=== PATIENT | female | born 1960 | race African-American/Black ===

== ENCOUNTER 2017-09-30 00:40 | Inpatient (IN) | payer MEDICAID ==
[~2017-09-30] VITALS: Ht 167.6 cm; Wt 79.4 kg
--- NOTE | ~2017-09-30 | EC ---
PATIENT:RADHA LEIVA DATE OF SERVICE: 09/30/17 SEX: F MEDICAL RECORD: [id number] DATE OF : 62 LOCATION:D.MS Suh224 AGE OF PATIENT: 57 ADMISSION DATE: 09/30/17 REFERRING PHYSICIAN: INTERPRETING PHYSICIAN: KEIRA CURRY MD ECHOCARDIOGRAM REPORT ECHO CHARGES 5 ECHO LIMITED Date: 10/02 CLINICAL DIAGNOSIS: BUBBLE STUDY LIMITED TO ASSESS FOR ASD/SHUNT ECHOCARDIOGRAPHIC MEASUREMENTS (adult normal given) AC root (d.<3.7cm) 3.6 cm LV Septum d (<1.2 cm> 1.4 cm Valve Excursion 1.9 cm LV Septum (systole) 1.5 cm Left Atria (s.<4.0cm> 3.9 cm LVPW d(<1.2cm) 1.5 cm RV (d.<2.3cm) 4.5 cm LVPW (sytole) 2. cm LV diastole(<5.6CM) 4.9 cm MV E-F(>70mm/sec) cm LV systole 3.9 cm LVOT Diameter 1.7 cm MV exc.(>10mm) 1.7 cm Est.ejection fraction (50-75%) % DOPPLER: LVIT cm/sec A 57.0 cm/sec E 132 cm/sec LA cm/sec RVSP 67 mmHg LVOT 109 cm/sec AOP1/2T m/s Asc. Ao 141 cm/sec RVOT 73 cm/sec RA cm/sec PA 87 cm/sec AV Gradient Peak 7.90 mmHg AV Mean 4.57 mmHg AV Area 1.8 cm MV Gradient Peak 10.43mmHg MV Mean 3.26 mmHg MV Area cm COMMENTS: NO ASD/SHUNT NOTED Realtime Captioner: Angle GIPSON X Ray Technologist: 2 Dr. Lewis TAPE# PACS Pericardial Effusion N DATE OF SERVICE: PROCEDURE: Echo with bubble study. FINDINGS: 1. Left ventricular chamber size is within normal limits. Left ventricular systolic function is normal. Overall ejection fraction estimated at 65%. 2. Left atrium, right atrium, and right ventricular chamber sizes are within normal limits. 3. Valvular structures have normal structure and motion. ECHOCARDIOGRAM REPORT [id number] RADHA LEIVA 4. Doppler interrogation reveals no significant valvular insufficiency or stenosis. 5. No evidence of pericardial effusion or left ventricular thrombus. 6. Bubble study was performed. There is no evidence of ASD or VSD. TRANSINT:[id number] Voice Confirmation ID: [id number] DOCUMENT ID: [id number] KEIRA CURRY MD at 1057 CC: [id number] DICTATION DATE: 10/02/17 1259 SHIPBUILDING DRAFTSPERSON: 10/02/17 1307 ADM IN [place] [address] [place] [address]
--- NOTE | ~2017-09-30 | CN ---
PATIENT NAME:RADHA LEIVA MEDICAL RECORD: [id number] : 62 LOCATION:D.MS Suh2240 ADMIT DATE: 09/30/17 ACCOUNT: [id number] CONSULTING PHYSICIAN: NORMA STEEN MD REFERRING PHYSICIAN: LOTUS LOPEZ MD DATE OF CONSULTATION: 10/01/2017 CHIEF COMPLAINT: Pneumonia. HISTORY OF PRESENT ILLNESS: The patient was admitted with pneumonia. She has been having some abdominal pain as well. She underwent an abdominal ultrasound which revealed small amount of ascites adjacent to the liver. Mild gallbladder wall thickening with a small amount of pericholecystic fluid, which is likely due to underlying liver parenchymal disease. It could also indicate a chronic cholecystitis. There was fatty infiltration of the liver. The patient underwent an abdominal and pelvic CT scan, which revealed no acute inflammatory process seen in the abdomen. The patient states that her abdominal symptoms, which consist of pain and tenderness in the epigastrium as well as the right upper quadrant began when she was started on steroids due to respiratory problems. I think that due to the association with steroid use that it is more likely that her pain is due to gastritis, duodenitis, peptic ulcer disease, or gastroesophageal reflux disease. Symptoms are moderate in severity. It is nonradiating. It is of recent onset. This is a consultation note addendum. For the typed portion of the consult note, please see the chart. This would include the past medical and surgical history, current medications, allergies, social history as well as family history. REVIEW OF SYSTEMS: Positive for pain. Positive for dyspnea on exertion. Positive for orthopnea. Positive for cough. The review of systems is negative other than as is described above. PHYSICAL EXAMINATION: GENERAL: The patient does appear acutely ill. He does not appear chronically ill. VITAL SIGNS: Reviewed. The entire physical examination was performed in the presence of a female nurse. EARS: External ears appear normal. EYES: Extraocular movements are intact. NECK: Trachea is midline. CHEST: No intercostal retractions. PULMONARY: Mildly labored. No stridor. ABDOMEN: Tenderness as described above with guarding. No peritonitis to percussion. No Rovsing sign. There is a Harrell sign. EXTREMITIES: No peripheral cyanosis. INTEGUMENT: No rash, no ulcerations. PSYCHIATRIC: Normal affect. NEUROLOGIC: Nonfocal, no lethargy. The patient answers questions appropriately, moves all extremities well. BACK: No thoracic kyphosis. CONSULT REPORT [id number] RADHA LEIVA IMPRESSION: Epigastric and right upper quadrant abdominal pain, likely not due to biliary disease. PLAN: She is too high risk for a gallbladder operation at this point due to her lung disease. For this reason, I will see her in the office in followup and we will see if her symptoms have resolved by then. TRANSINT:[id number] Voice Confirmation ID: [id number] DOCUMENT ID: [id number] NORMA STEEN MD at 1517 CC: [id number] DICTATION DATE: 10/03/17 1102 PAYROLL BOOKKEEPER: 10/03/17 1139 ADM IN [facility] [address] [place] [address]
--- NOTE | ~2017-09-30 | EC ---
PATIENT:RADHA LEIVA DATE OF SERVICE: 09/30/17 SEX: F MEDICAL RECORD: [id number] DATE OF : 62 LOCATION:D.MS Suh224 AGE OF PATIENT: 57 ADMISSION DATE: 09/30/17 REFERRING PHYSICIAN: INTERPRETING PHYSICIAN: KEIRA CARMONA MD ECHOCARDIOGRAM REPORT ECHO CHARGES 4 ECHO COMPLETE Date: 09/30 CLINICAL DIAGNOSIS: EFFUSION ECHOCARDIOGRAPHIC MEASUREMENTS (adult normal given) AC root (d.<3.7cm) 3.6 cm LV Septum d (<1.2 cm> 1.4 cm Valve Excursion 1.9 cm LV Septum (systole) 1.5 cm Left Atria (s.<4.0cm> 3.9 cm LVPW d(<1.2cm) 1.5 cm RV (d.<2.3cm) 4.5 cm LVPW (sytole) 2. cm LV diastole(<5.6CM) 4.9 cm MV E-F(>70mm/sec) cm LV systole 3.9 cm LVOT Diameter 1.7 cm MV exc.(>10mm) 1.7 cm Est.ejection fraction (50-75%) % DOPPLER: LVIT cm/sec A 57.0 cm/sec E 132 cm/sec LA cm/sec RVSP 67 mmHg LVOT 109 cm/sec AOP1/2T m/s Asc. Ao 141 cm/sec RVOT 73 cm/sec RA cm/sec PA 87 cm/sec AV Gradient Peak 7.90 mmHg AV Mean 4.57 mmHg AV Area 1.8 cm MV Gradient Peak 10.43mmHg MV Mean 3.26 mmHg MV Area cm COMMENTS: Wall Taper Helper: Angle GIPSON Ac/Dc Rewinder: 1 Dr. Carmona TAPE# PACS Pericardial Effusion Y DATE OF SERVICE: 09/30/2017 FINDINGS: 1. Left ventricular chamber size is mildly dilated. Left ventricular systolic function is moderately reduced. Overall ejection fraction estimated at 30%. 2. Left atrium is within normal limits at 3.9 cm. Right atrium and right ventricular chamber sizes are moderately dilated. 3. Valvular structures have normal structure and motion. 4. Doppler interrogation reveals severe mitral regurgitation, severe tricuspid regurgitation, no other valvular insufficiency or stenosis; however, pulmonary ECHOCARDIOGRAM REPORT [id number] RADHA LEIVA systolic pressure is significantly elevated estimated at 67 mmHg. 5. No evidence of pericardial effusion or left ventricular thrombus. TRANSINT:[id number] Voice Confirmation ID: [id number] DOCUMENT ID: [id number] KEIRA CARMONA MD at 1056 CC: [id number] DICTATION DATE: 10/01/17 0940 GENERAL SCIENCE TEACHER: 10/01/17 1118 ADM IN [facility] [address] [place] [address]
[2017-09-30 01:29] LABS: BASOPHILS 0.4 % (0-2); EOSINOPHILS 1.3 % (0-7); HEMATOCRIT 32.8 % (36.0-48.0); HEMOGLOBIN 11.2 g/dL (12-16); IMMATURE GRANULOCYTES 0.4 % (0-5); LYMPHOCYTES 48.1 % (15-50); MCH 27.7 pg (26.0-34.0); MCHC 34.1 g/dL (31.0-37.0); MEAN PLATELET VOLUME 10.7 fL (7.4-10.4); MONOCYTES 5.2 % (2-11); NEUTROPHILS 44.6 % (40-80); PLATELET COUNT 320 10x3/uL (130-400); RBC 4.05 10x6/uL (4.00-5.40); RDW 14.2 % (11.5-14.5); WBC 11.2 10x3/uL (4.8-10.8)
[2017-09-30 01:53] LABS: ALBUMIN 3.2 g/dL (3.4-5.0); BILIRUBIN - TOTAL 0.5 mg/dL (0.2-1.3); CALCIUM 8.3 mg/dL (8.5-10.1); CREATININE - SERUM 1.2 mg/dL (0.6-1.3); PROTEIN - SERUM 6.5 g/dL (6.4-8.2)
[2017-09-30 02:04] LABS: APPEARANCE CLEAR (CLEAR); BILIRUBIN NEGATIVE (NEGATIVE); COLOR YELLOW (YELLOW); GLUCOSE NEGATIVE (NEGATIVE); KETONE NEGATIVE (NEGATIVE); NITRITE NEGATIVE (NEGATIVE); PROTEIN 3+ mg/dL (NEGATIVE); SPECIFIC GRAVITY 1.015 (1.005-1.020); UROBILINOGEN NORMAL (NORMAL)
[2017-09-30 02:05] LABS: BACTERIA FEW /hpf (NONE SEEN); EPITHELIAL CELLS 0-5 /hpf (0-5); RED CELLS - URINE 0-5 /hpf (0-5); WHITE CELLS - URINE 0-5 /hpf (0-5)
[2017-09-30 02:51] LABS: CKMB 1.4 U/L (0.0-3.6); CREATINE KINASE 78 UL (21-215); TROPONIN-I 0.034 ng/mL (0.000-0.060)
[2017-09-30 08:44] VITALS: BP 155/93; BMI 28.3
[2017-09-30 12:32] VITALS: BP 123/76
[2017-09-30 15:59] LABS: % SATURATION 17 % (15-55); IRON 55 ug/dl (35-150); TOTAL IRON BIND CAPACITY 317 ug/dl (260-445); UNSAT IRON BIND CAPACITY 262 ug/dl (150-375)
[2017-09-30 16:02] LABS: CKMB 1.3 U/L (0.0-3.6); CREATINE KINASE 54 UL (21-215); TROPONIN-I 0.024 ng/mL (0.000-0.060)
[2017-09-30 16:16] LABS: FERRITIN 366 ng/mL (3-244); PRO BNP 5031 pg/mL (0-125)
[2017-09-30 16:31] VITALS: BP 158/98
[2017-09-30 20:23] VITALS: BP 172/81
[2017-09-30 21:53] LABS: CREATINE KINASE 54 UL (21-215); TROPONIN-I < 0.017 ng/mL (0.000-0.060)
[2017-09-30 23:43] VITALS: BP 170/94
[2017-10-01 06:09] LABS: BASOPHILS 0.3 % (0-2); EOSINOPHILS 1.8 % (0-7); HEMATOCRIT 32.3 % (36.0-48.0); HEMOGLOBIN 10.4 g/dL (12-16); IMMATURE GRANULOCYTES 0.1 % (0-5); LYMPHOCYTES 42.9 % (15-50); MCH 26.7 pg (26.0-34.0); MCHC 32.2 g/dL (31.0-37.0); MEAN PLATELET VOLUME 10.6 fL (7.4-10.4); MONOCYTES 6.5 % (2-11); NEUTROPHILS 48.4 % (40-80); PLATELET COUNT 269 10x3/uL (130-400); RBC 3.89 10x6/uL (4.00-5.40); RDW 14.8 % (11.5-14.5)
[2017-10-01 06:15] LABS: WBC 7.4 10x3/uL (4.8-10.8)
[2017-10-01 07:03] LABS: ALBUMIN 2.8 g/dL (3.4-5.0); ALKALINE PHOSPHATASE 130 U/L (46-116); ALT (SGPT) 299 U/L (10-68); BILIRUBIN - TOTAL 0.49 mg/dL (0.2-1.3); CALC OSMOLALITY 291 mosm/kg (275-300); CALCIUM 7.8 mg/dL (8.5-10.1); CHLORIDE - SERUM 110 mmol/L (98-107); CHOLESTEROL, TOTAL 156 mg/dL (0-200); CREATINE KINASE 42 UL (21-215); CREATININE - SERUM 1.2 mg/dL (0.6-1.3); GLUCOSE 93 mg/dL (74-106); HDL CHOLESTEROL 31 mg/dL (32-96); LDL CHOLESTEROL 103 mg/dL (0-100); LDL-HDL RATIO 3.3 ratio (1.5-3.5); LIPASE 116 U/L (73-393); MAGNESIUM - SERUM 2.1 mg/dL (1.8-2.4); POTASSIUM - SERUM 4.4 mmol/L (3.5-5.1); PROTEIN - SERUM 5.8 g/dL (6.4-8.2); SODIUM 144 mmol/L (136-145); TRIGLYCERIDE 112 mg/dL (30-200); UREA NITROGEN 26 mg/dL (7-18); eGFR NON AFRICAN AMERICAN 49 mL/min (90-120)
[2017-10-01 08:39] VITALS: BP 186/118
[2017-10-01 12:45] VITALS: BP 172/102
[2017-10-01 14:27] VITALS: Ht 167.6 cm; Wt 79.4 kg
[2017-10-01 17:11] VITALS: BP 182/107
[2017-10-01 20:00] VITALS: BP 151/87
[2017-10-02] VITALS: BP 148/82
[2017-10-02 04:00] VITALS: BP 134/91
[2017-10-02 05:30] LABS: BASOPHILS 0.1 % (0-2); EOSINOPHILS 2.2 % (0-7); HEMATOCRIT 30.3 % (36.0-48.0); IMMATURE GRANULOCYTES 0.3 % (0-5); LYMPHOCYTES 40.5 % (15-50); MCH 27.1 pg (26.0-34.0); MCV 82.1 fL (80.0-100.0); MEAN PLATELET VOLUME 10.1 fL (7.4-10.4); MONOCYTES 5.7 % (2-11); NEUTROPHILS 51.2 % (40-80); PLATELET COUNT 244 10x3/uL (130-400); RBC 3.69 10x6/uL (4.00-5.40); RDW 14.8 % (11.5-14.5); WBC 6.8 10x3/uL (4.8-10.8)
[2017-10-02 06:20] LABS: ALBUMIN 2.7 g/dL (3.4-5.0); ANION GAP 14.5 mmol/L (8-16); BILIRUBIN - TOTAL 0.35 mg/dL (0.2-1.3); CALCIUM 8.1 mg/dL (8.5-10.1); CARBON DIOXIDE 24.4 mmol/L (21.0-32.0); POTASSIUM - SERUM 3.9 mmol/L (3.5-5.1); PROTEIN - SERUM 5.7 g/dL (6.4-8.2)
[2017-10-02 09:11] VITALS: BP 162/82
[2017-10-02 09:17] LABS: FOLATE (FOLIC ACID) - SERUM 12.3 ng/mL (>3.0)
[2017-10-02 13:21] VITALS: BP 168/89
[2017-10-02 20:00] VITALS: BP 168/91
[2017-10-03 00:49] VITALS: BP 156/88
[2017-10-03 04:49] VITALS: BP 182/99
[2017-10-03 06:41] LABS: ANION GAP 14.8 mmol/L (8-16); BILIRUBIN - TOTAL 0.37 mg/dL (0.2-1.3); CALCIUM 8.5 mg/dL (8.5-10.1); CARBON DIOXIDE 26.4 mmol/L (21.0-32.0); CREATININE - SERUM 0.9 mg/dL (0.6-1.3); POTASSIUM - SERUM 4.2 mmol/L (3.5-5.1); PROTEIN - SERUM 5.9 g/dL (6.4-8.2)
[2017-10-03 07:11] LABS: BASOPHILS 0.1 % (0-2); EOSINOPHILS 2.4 % (0-7); HEMATOCRIT 32.7 % (36.0-48.0); HEMOGLOBIN 10.9 g/dL (12-16); IMMATURE GRANULOCYTES 0.1 % (0-5); LYMPHOCYTES 37.5 % (15-50); MCH 27.4 pg (26.0-34.0); MCHC 33.3 g/dL (31.0-37.0); MCV 82.2 fL (80.0-100.0); MEAN PLATELET VOLUME 10.9 fL (7.4-10.4); NEUTROPHILS 52.9 % (40-80); PLATELET COUNT 249 10x3/uL (130-400); RBC 3.98 10x6/uL (4.00-5.40); RDW 14.7 % (11.5-14.5); WBC 6.7 10x3/uL (4.8-10.8)
[2017-10-03 08:19] VITALS: BP 196/111
[2017-10-03 12:10] VITALS: BP 181/102
[2017-10-03 15:54] VITALS: BP 164/84
[2017-10-03 20:00] VITALS: BP 182/99
[2017-10-04] VITALS: BP 155/80
[2017-10-04 04:00] VITALS: BP 136/65
[2017-10-04 05:12] LABS: BASOPHILS 0.3 % (0-2); EOSINOPHILS 3.5 % (0-7); HEMATOCRIT 32.5 % (36.0-48.0); IMMATURE GRANULOCYTES 0.5 % (0-5); LYMPHOCYTES 36.7 % (15-50); MCH 27.2 pg (26.0-34.0); MCHC 33.8 g/dL (31.0-37.0); MCV 80.4 fL (80.0-100.0); MONOCYTES 6.6 % (2-11); NEUTROPHILS 52.4 % (40-80); PLATELET COUNT 292 10x3/uL (130-400); RBC 4.04 10x6/uL (4.00-5.40); RDW 14.5 % (11.5-14.5); WBC 6.6 10x3/uL (4.8-10.8)
[2017-10-04 05:31] LABS: CARBON DIOXIDE 29.2 mmol/L (21.0-32.0)
[2017-10-04 05:46] LABS: ALBUMIN 2.9 g/dL (3.4-5.0); BILIRUBIN - TOTAL 0.29 mg/dL (0.2-1.3); PROTEIN - SERUM 5.9 g/dL (6.4-8.2)
[2017-10-04 05:51] LABS: CALCIUM 8.1 mg/dL (8.5-10.1)
[2017-10-04 05:52] LABS: ANION GAP 13.3 mmol/L (8-16); POTASSIUM - SERUM 3.5 mmol/L (3.5-5.1)
[2017-10-04 07:44] VITALS: BP 159/87
[2017-10-04 11:34] VITALS: BP 141/74
[2017-10-04] MEDS ORDERED: ZESTRIL40 MG PO (16:08)
[2017-10-04] MEDS ORDERED: HYDRALAZINE HCL25 MG PO (16:08)
[2017-10-04] MEDS ORDERED: NORVASC10 MG PO (16:08)
[2017-10-04] MEDS ORDERED: LEVAQUIN750 MG PO (16:08)
[2017-10-04] MEDS ORDERED: BUMEX2 MG PO (16:09)
[2017-10-04] MEDS ORDERED: MIRALAX17 GM PO (16:09)
[2017-10-04] MEDS ORDERED: PROTONIX40 MG PO (16:09)
[2017-10-04] MEDS ORDERED: HYDROCODON-ACE1 EAC7 PO (16:10)
[2017-10-04] MEDS ORDERED: CARAFATE1 G PO (16:11)
[2017-10-04 16:20] VITALS: BP 152/83
== END 2017-10-04 19:08 | disposition home or self-care (01) | DRG 291 ==
LOC: D.ER 00:40 → D.EDHOLD 06:33 → D.MS 06:33
PROVIDERS: Family Medicine; Internal Medicine Nephrology
DX: I50.21 Acute systolic (congestive) heart failure (principal); J18.9 Pneumonia, unspecified organism; F72 Severe intellectual disabilities; N17.9 Acute kidney failure, unspecified; I51.7 Cardiomegaly; K21.9 Gastro-esophageal reflux disease without esophagitis; R79.89 Other specified abnormal findings of blood chemistry; D64.9 Anemia, unspecified; I08.1 Rheumatic disorders of both mitral and tricuspid valves; I27.20 Pulmonary hypertension, unspecified

== ENCOUNTER 2017-12-21 09:33 | Inpatient (IN) | payer MEDICAID ==
[2017-12-21] VITALS (14 sets, daily range): BP systolic 135–206; BP diastolic 67–141
[~2017-12-21] VITALS: Ht 167.6 cm; Wt 77.1 kg
--- NOTE | ~2017-12-21 | HEMODYNAMI ---
PATIENT:RADHA LEIVA MEDICAL RECORD: [id number] : 62 LOCATION:[address] ADMISSION DATE: 12/21/17 Generatedon:12/25/20179:16 Patient name: RADHA LEIVA Patient #: [id number] SSN: : Date of study: 12/25/2017 Page: Of Hemodynamic Procedure Report Patient Data Patient Demographics Procedure consent was obtained First Name: RADHA Gender: Female Last Name: ABBIE : 1960 Patient #: [id number] Age: 57 year(s) Race: Black Additional ID: [id number] Contact details [address]: [address] [place] [address] State: [place] City: [place] Zip code: [address] Past Medical History Allergies: No known allergies Admission Admission Data Admission Date: 12/21/2017 Admission Time: 16:53 Room #: [facility] Procedure Procedure Types Cath Procedure Diagnostic Procedure [facility] w/Coronaries PCI Procedure Coronary Stent Coronary Stent Initial Procedure Description Procedure Date Procedure Date: 12/25/2017 Procedure Start Time: 8:49 Procedure End Time: 9:14 Procedure Staff Name Function Etienne Carmona MD Performing Physician Rachael Ansari RT Monitor Kay Hays RT Scrub Kelly Navarrete RN Nurse Procedure Data Cath Procedure Fluoroscopy Diagnostic fluoroscopy Total fluoroscopy Time: 7.1 time: 7.1 min min Diagnostic fluoroscopy Total fluoroscopy dose: 747 dose: 747 mGy mGy Contrast Material Contrast Material Type Amount (ml) Isovue 300 112 Entry Location Entry Primary Successful Side Size Upsize Upsize Entry Closure Cabral ccessful Closure Location (Fr) 1 (Fr) 2 (Fr) Remarks Device Remarks Radial Right 6 Fr Mechanical TR Band artery Short Compression Estimated blood loss: 10 ml Diagnostic catheters Device Type Used For End Catheter Placement DIAGNOSTIC Embarrass 110cm 5 Procedure Fr catheter ([id number]) Procedure Complications No complications Procedure Medications Medication Administration Route Dosage Oxygen NC 2 l/min Lidocaine 2% added to field 20 Heparin Flush Bag added to field 2 bags (1000units/500ml NS) 0.9% NaCl I.V. 100 ml/hr Versed I.V. 1 mg Fentanyl I.V. 50 mcg Versed I.V. 1 mg Fentanyl I.V. 50 mcg Radial Cocktail I.A. 1 syringe (Verapomil 2mg/Nitro 400mcg/Heparin 1500units) Heparin Bolus I.V. 4000 units Integrilin (Bolus I.V. 6.8 ml 2mg/ml) Fentanyl I.V. 100 mcg Brilinta P.O. 180 mg Hemodynamics Rest Heart Rate: 94 (bpm) Snapshots Pre Cath Intra NCS Post Cath Vital Signs Time Heart Resp SPO2 etCO2 NIBP (mmHg) Rhythm Pain Sedation Rate (ipm) (%) (mmHg) Status Level (bpm) 8:27:11 96 22 99 31.7 191/108(144) NSR 0 (11) 10(A) , No pain 8:31:41 92 25 96 36.9 182/109(151) NSR 0 (11) 10(A) , No pain 8:36:08 89 20 95 15.8 182/110(153) NSR 0 (11) 10(A) , No pain 8:40:32 89 18 95 37.7 171/98(140) NSR 0 (11) 10(A) , No pain 8:44:52 89 21 93 36.2 161/92(124) NSR 0 (11) 10(A) , No pain 8:49:12 83 26 95 33.9 170/85(119) NSR 0 (11) 10(A) , No pain 8:53:26 82 20 95 27.1 133/75(106) NSR 0 (11) 9(A) , No pain 8:57:30 88 10 96 29.4 105/68(101) NSR 0 (11) 9(A) , No pain 9:02:25 89 27 96 30.2 126/66(97) NSR 0 (11) 9(A) , No pain 9:06:35 89 28 97 32.4 122/74(102) NSR 0 (11) 9(A) , No pain 9:10:43 93 14 96 31.7 141/76(106) NSR 0 (11) 10(A) , No pain 9:14:59 91 14 95 36.2 151/81(112) NSR 0 (11) 10(A) , No pain Medications Time Medication Route Dose Verified Delivered Reason Notes Effectiveness by by 8:25:32 Oxygen NC 2 l/min Etienne Buffie used for Mathew Navarrete RN procedure 8:25:39 Lidocaine 2% added 20ml Etienne Clifton for local to vial Mathew Carmona MD anesthetic field 8:25:45 Heparin Flush added 2 bags Etienne Clifton used for Bag to Mathew Carmona MD procedure (1000units/500ml field NS) 8:25:53 0.9% NaCl I.V. 100 Etienneomero Lizarragaie Per physician ml/hr Mathew Navarrete RN 8:49:16 Versed I.V. 1 mg Etienne Mendoza for sedation Mathew Navarrete RN 8:49:21 Fentanyl I.V. 50 mcg Etienne Mendoza for sedation Mathew Navarrete RN 8:52:38 Versed I.V. 1 mg Etienne Mendoza for sedation Mathew Navarrete RN 8:52:42 Fentanyl I.V. 50 mcg Etienne Mendoza for sedation Mathew Navarrete RN 8:56:13 Radial Cocktail I.A. 1 Etienne Clifton for (Verapomil syringe Mathew Carmona MD vasodilation 2mg/Nitro 400mcg/Heparin 1500units) 8:57:59 Fentanyl I.V. 100 mcg Etienne Mendoza for sedation Mathew Navarrete RN 9:01:12 Heparin Bolus I.V. 4000 Etienne Mendoza for verif ied units Mathew Navarrete RN anticoagulation with dr carmona 9:02:37 Integrilin I.V. 6.8 ml Etienne Mendoza Per physician Waste d (Bolus 2mg/ml) Mathew Navarrete RN 3.2 ml of vial 9:14:25 Brilinta P.O. 180 mg Etienne Mendoza for Mathew Navarrete RN antiplatelet therapy Procedure Log Time Note 8:01:12 Diagnostic Cath Status : Elective 8:01:33 Rachael Ansari RT(R) sent for patient. Start room use. 8:01:34 Time tracking: Regular hours (M-F 7:00 - 5:00) 8:01:39 Plan of Care:Hemodynamics will remain stable., Cardiac rhythm will remain stable., Comfort level will be maintained., Respiratory function will remain adequate., Patient/ family verbilizes understanding of procedure., Procedure tolerated without complication., Recovers from procedure without complications.. 8:13:57 Patient received from Med II to CCL 2 Alert and oriented. Tansferred to table in Supine position. 8:13:58 Warm blankets applied, and saravanan hugger turned on for patient comfort. 8:13:59 Correct patient and procedure confirmed by team. 8:14:00 Signed procedure consent form obtained from patient. 8:14:01 ECG and BP/O2 sat monitors applied to patient. 8:25:32 Oxygen 2 l/min NC was administered by Kelly Navarrete RN; used for procedure; 8:25:39 Lidocaine 2% 20ml vial added to field was administered by Etienne Carmona MD; for local anesthetic; 8:25:45 Heparin Flush Bag (1000units/500ml NS) 2 bags added to field was administered by Etienne Carmona MD; used for procedure; 8:25:53 0.9% NaCl 100 ml/hr I.V. was administered by Kelly Navarrete RN; Per physician; 8:25:56 Vital chart was started 8:27:42 Baseline sample Acquired. 8:27:46 Rhythm: sinus rhythm 8:27:48 Full Disclosure recording started 8:27:54 H&P Date Dictated: 12/24/2017 Within 30 days and on chart., H&P Addendum completed by physician on day of procedure. (MUST COMPLETE FOR ALL OUTPATIENTS). 8:27:59 Pre-procedure instructions explained to patient. 8:28:01 Family in waiting room. 8:28:20 Patient NPO since Midnight. 8:28:27 Patient allergic to No known allergies 8:28:30 Is the patient allergic to Iodine/contrast media? No. 8:28:42 Was the patient premedicated? Yes 8:28:45 Is patient on blood thinner?No 8:29:36 Patient diabetic? No. 8:29:51 Snore? No 8:29:52 Sleep apnea? No 8:29:56 Dentures? No ? 8:30:02 Patient pain scale 0/10 ?. 8:30:17 IV patent on arrival in right wrist with 0.9% NaCl at KVO. 8:30:33 IV started by Kelly Navarrete RN inleft forearm with a 22 gauge IV catheter with 0.9% NaCl at [facility]. 8:30:47 Lab results completed and on chart. 8:30:53 Right Radial & Right Groin area was prepped with chlora-prep and draped in sterile fashion 8:30:57 Alarms reviewed by RXochitl N. 8:30:59 Sharps counted by scrub and verified by R.N. 8:31:00 Physician paged 8:41:37 Zero performed for pressure channel P1 8:48:37 --------ALL STOP TIME OUT------ 8:48:38 Final Timeout: patient, procedure, and site verified with staff and physician. All members of the team are in agreement. 8:48:40 Right Radial & Right Groin site verified by team. 8:49:01 Physical assessment completed. ASA score P 2 - A patient with mild systemic disease as per Etienne Carmona MD. 8:49:05 Sedation plan: IV Moderate Sedation Medication:Versed, Fentanyl 8:49:13 Use device set Radial Dx or PCI 8:49:16 Versed 1 mg I.V. was administered by Kelly Navarrete RN; for sedation; 8:49:16 Procedure started. 8:49:21 Fentanyl 50 mcg I.V. was administered by Kelly Navarrete RN; for sedation; 8:49:39 Local anesthetic to right radial artery with Lidocaine 2% by Etienne Carmona MD.INITIAL ACCESS ONLY 8:49:41 ACIST Syringe (99487) opened to sterile field. 8:49:42 Medline Cath Pack ([id number]) opened to sterile field. 8:49:42 Bag Decanter () opened to sterile field. 8:49:43 DIAGNOSTIC WIRE .035 260cm J wire (851969) opened to sterile field. 8:49:46 ACIST Hand Control (31240) opened to sterile field. 8:49:46 ACIST Manifold (19677) opened to sterile field. 8:49:46 Tegaderm 4 x 4 (1626W) opened to sterile field. 8:49:47 MBrace Wrist Support ([id number]) opened to sterile field. 8:50:00 SHEATH 6Fr Prelude Radial ([id number]) opened to sterile field. 8:52:38 Versed 1 mg I.V. was administered by Kelly Navarrete RN; for sedation; 8:52:42 Fentanyl 50 mcg I.V. was administered by Kelly Navarrete RN; for sedation; 8:53:41 A 6 Fr Short sheath was inserted into the Right Radial artery 8:54:22 A DIAGNOSTIC Embarrass 110cm 5 Fr catheter ([id number]) was advanced over the wire and used for Procedure. 8:54:52 LV angiography performed. 8:56:13 Radial Cocktail (Verapomil 2mg/Nitro 400mcg/Heparin 1500units) 1 syringe I.A. was administered by Etienne Carmona MD; for vasodilation; 8:56:49 GLIDE WIRE ANGLE 260cm (EH9153) opened to sterile field. 8:56:58 EF : 50 % 8:57:30 RCA angiography performed. 8:57:56 Catheter removed. 8:57:59 Fentanyl 100 mcg I.V. was administered by Kelly Navarrete RN; for sedation; 8:59:18 GUIDE 6FR EBU 3.0 catheter ([id number]) opened to sterile field. 9:00:04 Proceeding to intervention. 9:00:24 6 Fr EBU 3 guide catheter was inserted over the wire 9:00:41 choice pt wire advanced. 9:01:02 CHOICE PT Extra Support 182cm wire ([id number]) opened to sterile field. 9:01:12 Heparin Bolus 4000 units I.V. was administered by Kelly Navarrete RN; for anticoagulation; verified with dr carmona 9:01:40 Wire advanced across lesion. 9:02:37 Integrilin (Bolus 2mg/ml) 6.8 ml I.V. was administered by Kelly Navarrete RN; Per physician; Wasted 3.2 ml of vial 9:03:51 Inflate balloon Inflation number: 1 A EUPHORA 2.5 x 20 Balloon ([id number]) was prepped and advanced across the Mid CX, then inflated to 13 JOSE RAMON for 0:10 (min:sec). 9:06:40 Place stent Inflation Number: 2 A INTEGRITY RX 2.5 x 26 stent ([id number]) was prepped and advanced across the Mid CX. The stent was deployed at 13 JOSE RAMON for 0:10 (min:sec). 9:08:50 Inflate balloon Inflation number: 3 A INTEGRITY RX 2.5 x 18 stent ([id number]) was prepped and advanced across the Mid CX, then inflated to 13 JOSE RAMON for 0:10 (min:sec). 9:10:03 TR BAND Standard ([id number]) opened to sterile field. 9:10:10 Wire removed. 9:10:12 Guide catheter removed. 9:11:56 Sheath removed intact; hemostasis achieved with Mechanical Compression to the Right Radial artery. 9:12:00 Procedure ended.(Physican Out) 9:12:10 Fluoroscopy time 07.10 minutes. 9:12:15 Fluoroscopy dose: 747 mGy 9:12:15 Flurop Dose total: 747 9:12:25 Contrast amount:Isovue 300 112ml. 9:12:27 Sharps counted by scrub and verified by R.N. 9:12:33 TR band inflated with 10cc of air. 9:12:35 Insertion/operative site no bleeding no hematoma. 9:12:39 Post-procedure physical assessment completed. ASA score P 2 - A patient with mild systemic disease as per Etienne Carmona MD. 9:12:42 Post procedure rhythm: unchanged. 9:13:11 Estimated blood loss: 10 ml 9:13:14 Post procedure instruction explained to patient.Patient verbalizes understanding. 9:13:33 Procedure type changed to Cath procedure, Diagnostic procedure, LHC, LHC w/Coronaries, PCI procedure, Coronary Stent, Coronary Stent Initial 9:13:34 Procedure and supply charges have been captured, reviewed, submitted and are correct. 9:14:07 Procedure Complication : No complications 9:14:10 Vital chart was stopped 9:14:12 See physician's report for complete and final results. 9:14:16 Patient transfered to Pre/Post Procedure Room with Stretcher. 9:14:21 Procedure ended. 9:14:21 Full Disclosure recording stopped 9:14:24 End room use (Document Last) 9:14:25 Brilinta 180 mg P.O. was administered by Kelly Navarrete RN; for antiplatelet therapy; 9:14:38 ACC-PCI Only Patient was given prescriptions, or instructed by Etienne Carmona MD to start/continue the following medications upon discharge: Brilinta Intervention Summary Intervention Notes Time ActionType Lesion and Equipment Action# Pressure Duration Attributes Used 9:03:51 Inflate Mid CX EUPHORA 2.5 1 13 00:10 balloon x 20 Balloon ([id number]) 9:06:40 Place stent Mid CX INTEGRITY RX 2 13 00:10 2.5 x 26 stent ([id number]) 9:08:50 Inflate Mid CX INTEGRITY RX 3 13 00:10 balloon 2.5 x 18 stent ([id number]) Device Usage Item Name Manufacture Quantity Catalog Number Hospital Part Current M inimal Lot# / Charge Number Stock Stock Serial# Code ACIST Syringe Acist 1 23848 914115 962066 709418 2 0 (09037) [employer] Inc Medline Cath Cardinal 1 [id number] 650617 18160 584828 5 [facility] ([id number]) Bag Decanter Microtek 1 2001S 230587 39326 576033 5 () Medical Inc. DIAGNOSTIC WIRE [facility] 1 111589 470210 973463 606931 3 0 .035 260cm J wire (515462) ACIST Hand Acist 1 53470 906159 259749 577937 5 Control (51130) [employer] Inc ACIST Manifold Acist 1 50934 387849 071805 537484 5 (60334) [employer] Systems Inc Tegaderm 4 x 4 3M 1 1626W 066384 669510 526221 5 (1626W) MBrace Wrist Advanced 1 140-0250-00 144948 10419 267946 5 Support Vascular ([id number]) Dynamics SHEATH 6Fr Merit 1 [id number] 393194 734845 874479 5 Prelude Radial Medical ([id number]) DIAGNOSTIC Terumo 1 40-6823 575343 908684 243952 5 Embarrass 110cm 5 Fr catheter (443203) GLIDE WIRE Terumo 1 IS5375 500127 950367 662390 5 ANGLE 260cm (MR7761) GUIDE 6FR EBU Medtronic 1 [id number] 824292 96467 104808 0 3.0 catheter ([id number]) CHOICE PT Extra [place] 1 [id number] 151045 169619 788869 5 Support 182cm Scientific wire ([id number]) EUPHORA 2.5 x Medtronic 1 [id number] 681024 587543 892935 5 [id number] 20 Balloon ([id number]) INTEGRITY RX Medtronic 1 [id number] 088755 293648 463667 5 [id number] 2.5 x 26 stent ([id number]) INTEGRITY RX Medtronic 1 [id number] 563541 825597 787191 5 [id number] 2.5 x 18 stent ([id number]) TR BAND Terumo 1 [id number] 073031 859362 052769 4 0 Standard ([id number]) Signature Audit [place] Stage Time Signature Unsigned Intra-Procedure 12/25/2017 Rachael Ansari 9:16:50 AM RT(R) Signatures Monitor : Rachael Ansari Signature : RT Date : Time : [place] [address] [place] [address]
--- NOTE | ~2017-12-21 | HP ---
PATIENT: RADHA LEIVA MEDICAL RECORD: [id number] ACCOUNT: [id number] LOCATION:[address] : 62 ADMISSION DATE: 12/21/17 HISTORY AND PHYSICAL EXAMINATION DATE OF ADMISSION: 12/21/2017 CHIEF COMPLAINT: Shortness of breath, abdominal pain. HISTORY OF PRESENT ILLNESS: A 57-year-old -[place]er female who had been admitted to the hospital here in September of this year. She had congestive heart failure with ejection fraction of approximately 30% at that point in time. She has also had elevated hypertension. She was seen by Dr. Lewis who had advised her to return 2 to 3 weeks after discharge. She was also to follow up with her PCP in 1 week. Obviously, she did not keep this appointment. She also has had abdominal pain, felt to be possibly secondary to chronic cholecystitis. She has not followed up with her surgeon. She is admitted to my service on unassigned medicine. She does have a PCP in [place] and resides in [place]. FAMILY HISTORY: Mother in her 60s due to heart disease. Father's whereabouts unknown. SOCIAL HISTORY: The patient was born and raised in [place]. She is disabled. States she has been disabled since the with fibromyalgia. HABITS: The patient states she has been a smoker as well as a drinker until September this past year. MEDICATIONS: Apparently are none at the present time. ALLERGIES: None. PAST MEDICAL HISTORY: Significant that she has had a partial hysterectomy. She has had hypertension in the past. REVIEW OF SYSTEMS: CONSTITUTIONAL: She denies any headaches, seizure or syncope. She denies any change in her visual or auditory acuity. PULMONARY: She does report increasing shortness of breath. She reports shortness of breath when lying down with any exertion at all. CARDIOVASCULAR: She has had no chest pain, palpitation, PND or orthopnea. GASTROINTESTINAL: No chronic. She has had nausea with eating. She has mid epigastric as well as right upper quadrant pain. She has had no change in her bowel habits. GENITOURINARY: No urgency, frequency, or dysuria. PHYSICAL EXAMINATION: VITAL SIGNS: Initially, the patient presented to Emergency Room where she has pulse 75, respirations 18, blood pressure 175/104, her O2 sat was 99% on room air. HEENT: Head is normocephalic. No lesions. Ears: TMs clear. Eyes: Pupils equal, round, reactive to light. Her extraocular movements are intact. Her nasal cavity, oral cavity, oropharynx clear. NECK: Supple. There is no adenopathy. HEART: Has a regular rate. HISTORY AND PHYSICAL [id number] RADHA LEIVA LUNGS: She has decreased breath sounds in the lower lung lobato. ABDOMEN: She has midepigastric as well as right upper quadrant tenderness. She has no organomegaly. LOWER EXTREMITIES: Had no edema. LABORATORY DATA: The patient had a sodium of 142, potassium of 4.1, chloride of 105, CO2 is 25, BUN is 26, creatinine at 1.1, glucose is 102. AST 78, ALT is 167, alkaline phosphatase is 168. Her proBNP is 5385. Amylase and lipase are normal. Thyroid function is normal as well. Urinalysis shows 3+ protein in the urine, trace blood, few bacteria. D-dimer slightly elevated at 2.64. The patient had a CTA of the chest showing negative for pulmonary embolus, findings consistent with congestive heart failure, bilateral pleural effusion, rounded alveolar opacity present. Passive congestion changes in the liver. Renal ultrasound reveals mild bilateral perinephric fluid, inflammatory/infectious process cannot be excluded. The patient had a chest x-ray showing cardiomegaly, no active infiltrates. ASSESSMENT: Uncontrolled hypertension with pleural effusion, congestive heart failure with a past history of ejection fraction 30% in September. EKG, left ventricular hypertrophy. Abdominal pain, possible gastritis versus chronic cholecystitis. PLAN: The patient will be admitted. Antihypertensive therapy will be initiated. She will also be placed on diuretics. Repeat echocardiogram. Also, we will have PIPIDA scan in the morning, Protonix 40 mg IV every 24 hours. We will also reconsult cardiology. TRANSINT:[id number] Voice Confirmation ID: [id number] DOCUMENT ID: [id number] MONICA WADSWORTH MD at 0742 CC: [id number] DICTATION DATE: 12/21/17 1447 SOLAR TECHNICIAN: 12/21/17 1545 ADM IN [address] [address]
--- NOTE | ~2017-12-21 | DS ---
PATIENT:RADHA LEIVA :62 MEDICAL RECORD: [id number] DISCHARGE SUMMARY ADMISSION DATE: 12/21/17 DISCHARGE DATE: 12/25/17 DATE OF ADMISSION: 12/21/2017. DATE OF DISCHARGE: 12/25/2017. CONDITION ON DISCHARGE: Improved. ADMITTING DIAGNOSES: Uncontrolled hypertension, pleural effusion, congestive heart failure, abdominal pain, cholecystitis. DISCHARGE DIAGNOSES: Heart failure, arteriosclerotic heart disease, acute systolic heart failure, acute renal failure, hypertension, gastroesophageal reflux, cholecystitis, hypertension. HOSPITAL COURSE: This patient is a 57-year-old -Bhut[place] female who presents to the Emergency Room. She was admitted to my service on unassigned medicine. She had a PCP in [place]. She apparently had been admitted in September of 2017. She was noted to have congestive failure at that time with ejection fraction 30%. She had hypertension. She was seen by a paper cone grader here. She was supposed to follow up in 2-3 weeks, but apparently did not keep her followup. She also had had abdominal pain felt to be secondary to chronic cholecystitis. She did not follow up with the surgeon. PHYSICAL EXAMINATION: GENERAL: In the Emergency Room, the patient's pulse was 75, respirations 18, blood pressure 175/104, O2 sat was 99% on room air. HEENT: Unremarkable. NECK: Supple. There is no adenopathy. HEART: Had a regular rate. LUNGS: Clear. LABORATORY DATA: Sodium was 142, potassium 4.1, chloride 105, CO2 was 25, BUN was 26, creatinine 1.1, her glucose was 102. Amylase and lipase were normal. Thyroid functions normal. D-dimer slightly elevated at 2.64. She had a CTA, which was negative for pulmonary embolus, but was consistent with heart failure, bilateral pleural effusions. The patient was admitted, antihypertensive therapies was initiated. She had a repeat echocardiogram. Also, she had a PIPIDA scan, placed on Protonix. Cardiology consultation was obtained. The patient had a renal ultrasound. Renal ultrasound revealed bilateral perinephrotic fluid, inflammatory versus infectious. She also had a hepatobiliary scan, which showed ejection fraction to be 1%. She was seen in consultation by Dr. Etienne Carmona. The patient did have a heart cath, which she underwent PTCA and stenting of the left circumflex. Left main had no significant angiographic disease, left anterior descending had some mild irregularities, but no flow limiting stenosis. Left circumflex had a 90% stenosis in the mid vessel. Left circumflex had a long area of 90% stenosis. She underwent PTCA with stenting of both of those with no residual stenosis noted. She also was seen in consultation by Dr. Fitzpatrick, surgeon. He wished that the patient would have a stress test prior to her cholecystectomy. After the heart cath, the patient was discharged by Dr. Carmona and it was felt that the laparoscopic cholecystectomy should be done in the near future. On the DISCHARGE SUMMARY REPORT [id number] RADHA LEIVA 12/25/2017, the patient was therefore discharged. DIET: She is to be on [employer] diet. DISCHARGE INSTRUCTIONS: She will continue all her current medication. FOLLOWUP: She would follow up with her physician in [place] that week. She also would call Dr. Fitzpatrick's office to schedule a surgery or cholecystectomy in 6 weeks. She will follow up with Dr. Carmona in 4 weeks. MEDICATIONS: Included Brilinta, amlodipine 5 mg once a day, Bumex 2 mg p.o. every day, KCl 10 mEq once a day, valsartan 320 mg daily, amlodipine 10 mg once a day, aspirin 81 mg once a day. TRANSINT:[id number] Voice Confirmation ID: [id number] DOCUMENT ID: [id number] MONICA WADSWORTH MD at 1414 CC: [id number] DICTATION DATE: 01/18/18 1402 PACKING MACHINE TENDER: 01/19/18 1057 DIS IN 12/25/17 [place] [id number] [place] [address]
--- NOTE | ~2017-12-21 | EC ---
PATIENT:RADHA LEIVA DATE OF SERVICE: 12/21/17 SEX: F MEDICAL RECORD: [id number] DATE OF : 62 LOCATION:D.M2 D.212 AGE OF PATIENT: 57 ADMISSION DATE: 12/21/17 REFERRING PHYSICIAN: INTERPRETING PHYSICIAN: KEIRA CARMONA MD ECHOCARDIOGRAM REPORT ECHO CHARGES 5 ECHO LIMITED Date: 12/22 1 DOPPLER ECHO COLOR FLOW 2 DOPPLER ECHO PULSE CLINICAL DIAGNOSIS: ECHOCARDIOGRAPHIC MEASUREMENTS (adult normal given) AC root (d.<3.7cm) 0 cm LV Septum d (<1.2 cm> 0 cm Valve Excursion 0 cm LV Septum (systole) 0 cm Left Atria (s.<4.0cm> 0 cm LVPW d(<1.2cm) 0 cm RV (d.<2.3cm) 0 cm LVPW (sytole) 0 cm LV diastole(<5.6CM) 0 cm MV E-F(>70mm/sec) 0 cm LV systole 0 cm LVOT Diameter 0 cm MV exc.(>10mm) 0 cm Est.ejection fraction (50-75%) % DOPPLER: LVIT 0 cm/sec A 0 cm/sec E 0 cm/sec LA 0 cm/sec RVSP 54.0 mmHg LVOT 0 cm/sec AOP1/2T 0 m/s Asc. Ao 0 cm/sec RVOT 0 cm/sec RA 0 cm/sec PA 0 cm/sec AV Gradient Peak 0 mmHg AV Mean 0 mmHg AV Area 0 cm MV Gradient Peak 0 mmHg MV Mean 0 mmHg MV Area 0 cm COMMENTS: LIMITED STUDY (2-D,COLOR,DOPPLER) COMPLETE ECHO DONE ON 09/30/17 AND A LIMITED ECHO DONE ON 10/02/17 Group Underwriter: Wai LINDSEYOE Mover Helper: 1 Dr. Carmona TAPE# PACS Pericardial Effusion Y DATE OF SERVICE: 12/22/2017 ECHOCARDIOGRAM FINDINGS: 1. Left ventricular chamber size is within normal limits. Left ventricular systolic function is mildly depressed. Overall ejection fraction is 40% to 45%. 2. Left atrium, right atrium, and right ventricular chamber sizes are mildly dilated. ECHOCARDIOGRAM REPORT [id number] RADHA LEIVA 3. Valvular structures have normal structure and motion. 4. Doppler interrogation reveals moderate mitral regurgitation, moderate tricuspid regurgitation, no other valvular insufficiency or stenosis. Pulmonary systolic pressure is elevated, estimated at 54 mmHg. 5. Small pericardial effusion is present. This is not hemodynamically significant. No evidence of left ventricular thrombus. TRANSINT:[id number] Voice Confirmation ID: [id number] DOCUMENT ID: [id number] KEIRA CARMONA MD at 1741 CC: [id number] DICTATION DATE: 12/22/17 1552 PRINCIPAL PLANNER: 12/22/17 1635 DIS IN 12/25/17 [place] [id number] [place] [id number]
--- NOTE | ~2017-12-21 | ST ---
PATIENT:RADHA LEIVA MEDICAL RECORD: [id number] SEX: F [facility] ORDER #: ADMISSION DATE: 12/21/17 AGE OF PATIENT: 57 REFERRING PHYSICIAN: INTERPRETING PHYSICIAN: KEIRA CURRY MD DATE OF SERVICE: 12/23/2017 Nuclear Stress Test INDICATION: Chest pain of unknown etiology. She was exercised on standard treadmill protocol with 30.2 mCi injected at peak stress and 13.0 mCi were used previously for rest images. FINDINGS: Gated SPECT reveals mildly depressed ejection fraction of 40% with good wall motion, thickening and brightening throughout all segments. SPECT IMAGING: Cardiolite was used as myocardial perfusion agent. There is reversibility laterally. This includes apical lateral, mid lateral, and basal lateral segments. The degree of reversibility is mild. The amount of myocardium involved is moderate. OVERALL IMPRESSION: 1. This is an abnormal nuclear stress test, reversibility laterally. 2. Gated SPECT reveals preserved, but mildly depressed ejection fraction of 40% in this patient with ongoing symptomatology. The current scan does suggest the presence of hemodynamically significant coronary artery disease. If symptomatology warrants, we would proceed with coronary angiography. TRANSINT:[id number] Voice Confirmation ID: [id number] DOCUMENT ID: [id number] KEIRA CURRY MD at 174 CC: [id number] DICTATION DATE: 12/23/17 1222 GRANTS ANALYST: 12/23/17 1614 DIS IN 12/25/17 [facility] [address] [place] [address]
--- NOTE | ~2017-12-21 | OP ---
PATIENT NAME: RADHA LEIVA MEDICAL RECORD: [id number] :62 LOCATION:D.M2 D.2126 ADMISSION DATE:12/21/17 SURGEON: KEIRA CURRY MD DATE OF OPERATION: 12/25/2017 PROCEDURES: 1. PTCA and stent of left circumflex. 2. Left heart catheterization. 3. Selective coronary angiography. 4. Left ventriculogram. INDICATION: Angina and coronary artery disease. PROCEDURE IN DETAIL: After informed consent was obtained and after a detailed explanation of the risks, benefits as well as alternative therapies, the patient elected to proceed with angiogram and angioplasty. The right radial area was prepped and draped in normal sterile fashion. Right radial artery was cannulated via modified Seldinger technique with placement of 6-Arabic sheath. All catheters exchanged through this sheath. FINDINGS: The left ventriculogram was performed in standard 30-degree CHISHOLM view, reveals good cardiac wall motion throughout all segments. Overall ejection fraction estimated 60%. SELECTIVE CORONARY ANGIOGRAPHY: 1. Left main is with no significant angiographic disease. 2. Left anterior descending has mild irregularities, but no flow-limiting stenosis. 3. The left circumflex has a long area of 90% stenosis in the mid vessel. 4. Right coronary has mild irregularities, but no flow-limiting stenosis. PTCA AND STENT OF THE LEFT CIRCUMFLEX: Stents used were 2.5 x 26 and 2.5 x 18, both Integrity stents. The result was 0% residual stenosis. OVERALL IMPRESSION: Successful PTCA and stent of the left circumflex going from 90% initial stenosis to 0% residual with mormon of NADER-3 flow. TRANSINT:[id number] Voice Confirmation ID: [id number] DOCUMENT ID: [id number] KEIRA CURRY MD at 1741 CC: MONICA WADSWORTH [id number] DICTATION DATE: 12/25/17 0915 VALVE TECHNICIAN: 12/25/17 1016 DIS IN 12/25/17 [place] [id number]
[~2017-12-21 09:33] MED LIST: BUMEX2 MG PO; CARAFATE1 G PO; HYDRALAZINE HCL25 MG PO; HYDROCODON-ACE1 EAC7 PO; LEVAQUIN750 MG PO; MIRALAX17 GM PO; NORVASC10 MG PO; PROTONIX40 MG PO; ZESTRIL40 MG PO
[2017-12-21 10:33] LABS: ALBUMIN 3.8 g/dL (3.4-5.0); BILIRUBIN - DIRECT 0.2 mg/dL (0.00-0.30); BILIRUBIN - INDIRECT 0.46 mg/dL (0.00-1.00); BILIRUBIN - TOTAL 0.66 mg/dL (0.2-1.3); PROTEIN - SERUM 7.6 g/dL (6.4-8.2)
[2017-12-21 11:40] LABS: ANION GAP 16.1 mmol/L (8-16); CALCIUM 9.1 mg/dL (8.5-10.1); CREATININE - SERUM 1.1 mg/dL (0.6-1.3); POTASSIUM - SERUM 4.1 mmol/L (3.5-5.1)
[2017-12-21 12:20] LABS: APPEARANCE CLEAR (CLEAR); BILIRUBIN NEGATIVE (NEGATIVE); COLOR YELLOW (YELLOW); GLUCOSE NEGATIVE (NEGATIVE); KETONE NEGATIVE (NEGATIVE); NITRITE NEGATIVE (NEGATIVE); PROTEIN 3+ mg/dL (NEGATIVE); UROBILINOGEN NORMAL (NORMAL)
[2017-12-21 12:28] LABS: BACTERIA FEW /hpf (NONE SEEN); EPITHELIAL CELLS 0-5 /hpf (0-5); RED CELLS - URINE 0-5 /hpf (0-5); WHITE CELLS - URINE 0-5 /hpf (0-5)
[2017-12-22] VITALS (7 sets, daily range): BP systolic 135–178; BP diastolic 71–95; Ht 167.6 cm; Wt 77.1 kg
[2017-12-22 04:38] LABS: BASOPHILS 0.1 % (0-2); EOSINOPHILS 2.5 % (0-7); HEMATOCRIT 30.9 % (36.0-48.0); HEMOGLOBIN 10.2 g/dL (12-16); IMMATURE GRANULOCYTES 0.1 % (0-5); LYMPHOCYTES 43.8 % (15-50); MCH 26.6 pg (26.0-34.0); MCV 80.7 fL (80.0-100.0); MEAN PLATELET VOLUME 10.5 fL (7.4-10.4); MONOCYTES 4.9 % (2-11); NEUTROPHILS 48.6 % (40-80); PLATELET COUNT 268 10x3/uL (130-400); RBC 3.83 10x6/uL (4.00-5.40); RDW 16.3 % (11.5-14.5); WBC 6.7 10x3/uL (4.8-10.8)
[2017-12-22 05:01] LABS: BILIRUBIN - TOTAL 0.36 mg/dL (0.2-1.3); CALCIUM 8.1 mg/dL (8.5-10.1); CARBON DIOXIDE 30.8 mmol/L (21.0-32.0); CREATININE - SERUM 1.2 mg/dL (0.6-1.3); MAGNESIUM - SERUM 1.9 mg/dL (1.8-2.4)
[2017-12-22 05:12] LABS: ANION GAP 11.6 mmol/L (8-16); POTASSIUM - SERUM 3.4 mmol/L (3.5-5.1)
[2017-12-22] MEDS ORDERED: OXY IR30 MG PO (06:47)
[2017-12-23 04:00] VITALS: BP 176/94
[2017-12-23 05:37] LABS: BASOPHILS 0.4 % (0-2); EOSINOPHILS 3.5 % (0-7); HEMATOCRIT 36.4 % (36.0-48.0); HEMOGLOBIN 11.9 g/dL (12-16); IMMATURE GRANULOCYTES 0.1 % (0-5); LYMPHOCYTES 36.7 % (15-50); MCH 26.6 pg (26.0-34.0); MCHC 32.7 g/dL (31.0-37.0); MCV 81.4 fL (80.0-100.0); MEAN PLATELET VOLUME 11.4 fL (7.4-10.4); MONOCYTES 6.5 % (2-11); NEUTROPHILS 52.8 % (40-80); RBC 4.47 10x6/uL (4.00-5.40); RDW 16.6 % (11.5-14.5); WBC 7.1 10x3/uL (4.8-10.8)
[2017-12-23 05:48] LABS: PLATELET COUNT 338 10x3/uL (130-400)
[2017-12-23 06:14] LABS: ANION GAP 12.3 mmol/L (8-16); CALCIUM 8.5 mg/dL (8.5-10.1); CARBON DIOXIDE 32.2 mmol/L (21.0-32.0); CREATININE - SERUM 1.2 mg/dL (0.6-1.3); MAGNESIUM - SERUM 1.8 mg/dL (1.8-2.4); POTASSIUM - SERUM 3.5 mmol/L (3.5-5.1)
[2017-12-23 08:32] VITALS: BP 186/112
[2017-12-23 11:31] VITALS: BP 164/77
[2017-12-23 16:54] VITALS: BP 162/93
[2017-12-23 20:45] VITALS: BP 186/115
[2017-12-24 01:02] VITALS: BP 125/70
[2017-12-24 04:41] LABS: ANION GAP 11.6 mmol/L (8-16); CALCIUM 8.9 mg/dL (8.5-10.1); CARBON DIOXIDE 32.3 mmol/L (21.0-32.0); POTASSIUM - SERUM 3.9 mmol/L (3.5-5.1)
[2017-12-24 06:12] VITALS: BP 162/86
[2017-12-24 08:21] VITALS: BP 180/70
[2017-12-24 11:52] VITALS: BP 157/74
[2017-12-24 15:47] VITALS: BP 170/90
[2017-12-24 20:35] VITALS: BP 140/85
[2017-12-25 01:41] VITALS: BP 182/96
[2017-12-25 04:00] VITALS: BP 182/96
[2017-12-25 04:27] LABS: ANION GAP 9.2 mmol/L (8-16); CALCIUM 9.4 mg/dL (8.5-10.1); CARBON DIOXIDE 32.8 mmol/L (21.0-32.0)
[2017-12-25 04:46] LABS: BASOPHILS 0.3 % (0-2); HEMATOCRIT 39.6 % (36.0-48.0); HEMOGLOBIN 13.1 g/dL (12-16); IMMATURE GRANULOCYTES 0.3 % (0-5); LYMPHOCYTES 50.3 % (15-50); MCH 26.9 pg (26.0-34.0); MCHC 33.1 g/dL (31.0-37.0); MCV 81.3 fL (80.0-100.0); MEAN PLATELET VOLUME 10.7 fL (7.4-10.4); MONOCYTES 6.9 % (2-11); NEUTROPHILS 38.2 % (40-80); PLATELET COUNT 357 10x3/uL (130-400); RBC 4.87 10x6/uL (4.00-5.40); RDW 15.9 % (11.5-14.5); WBC 7.5 10x3/uL (4.8-10.8)
[2017-12-25 09:22] VITALS: BP 119/94
[2017-12-25 15:43] VITALS: BP 172/81
== END 2017-12-25 16:09 | disposition home or self-care (01) | DRG 248 ==
LOC: D.ER 09:33 → D.EDHOLD 16:53 → D.M2 16:53
PROVIDERS: Family Medicine; Internal Medicine Interventional Cardiology
PROC: B2111ZZ Fluoroscopy of Multiple Coronary Arteries using Low Osmolar Contrast (ICD-10-PCS; 2017-12-25)
PROC: B2151ZZ Fluoroscopy of Left Heart using Low Osmolar Contrast (ICD-10-PCS; 2017-12-25)
PROC: 02703EZ Dilation of Coronary Artery, One Artery with Two Intraluminal Devices, Percutaneous Approach (ICD-10-PCS; principal; 2017-12-25 08:00)
PROC: 4A023N7 Measurement of Cardiac Sampling and Pressure, Left Heart, Percutaneous Approach (ICD-10-PCS; 2017-12-25 08:00)
DX: I25.119 Atherosclerotic heart disease of native coronary artery with unspecified angina pectoris (principal); I50.21 Acute systolic (congestive) heart failure; N17.9 Acute kidney failure, unspecified; I11.0 Hypertensive heart disease with heart failure; K21.9 Gastro-esophageal reflux disease without esophagitis; K81.1 Chronic cholecystitis; Z87.891 Personal history of nicotine dependence; I16.0 Hypertensive urgency

== ENCOUNTER 2018-02-06 15:45 | Inpatient (IN) | payer MEDICAID ==
[~2018-02-06] VITALS: Ht 167.6 cm; Wt 77.1 kg
[~2018-02-06 15:45] MED LIST changes: +OXY IR30 MG PO
[2018-02-06 16:18] LABS: BASOPHILS 0.3 % (0-2); EOSINOPHILS 1.6 % (0-7); HEMOGLOBIN 11.4 g/dL (12-16); IMMATURE GRANULOCYTES 0.2 % (0-5); LYMPHOCYTES 43.1 % (15-50); MCH 26.9 pg (26.0-34.0); MCHC 33.5 g/dL (31.0-37.0); MCV 80.2 fL (80.0-100.0); MEAN PLATELET VOLUME 10.3 fL (7.4-10.4); MONOCYTES 6.1 % (2-11); NEUTROPHILS 48.7 % (40-80); PLATELET COUNT 322 10x3/uL (130-400); RBC 4.24 10x6/uL (4.00-5.40); RDW 16.8 % (11.5-14.5); WBC 8.8 10x3/uL (4.8-10.8)
[2018-02-06 16:41] LABS: ALBUMIN 3.3 g/dL (3.4-5.0); ANION GAP 17.2 mmol/L (8-16); BILIRUBIN - TOTAL 1.42 mg/dL (0.2-1.3); CALCIUM 8.5 mg/dL (8.5-10.1); CARBON DIOXIDE 23.8 mmol/L (21.0-32.0); CREATININE - SERUM 1.3 mg/dL (0.6-1.3); PROTEIN - SERUM 6.5 g/dL (6.4-8.2)
[2018-02-06 16:44] LABS: APPEARANCE CLEAR (CLEAR); COLOR YELLOW (YELLOW); SPECIFIC GRAVITY 1.015 (1.005-1.020)
[2018-02-06 16:45] LABS: BILIRUBIN NEGATIVE (NEGATIVE); GLUCOSE NEGATIVE (NEGATIVE); KETONE NEGATIVE (NEGATIVE); NITRITE NEGATIVE (NEGATIVE); PROTEIN 1+ mg/dL (NEGATIVE); UROBILINOGEN NORMAL (NORMAL)
[2018-02-06 16:46] LABS: BACTERIA MANY /hpf (NONE SEEN); EPITHELIAL CELLS 0-5 /hpf (0-5); RED CELLS - URINE 0-5 /hpf (0-5)
[2018-02-06 19:21] VITALS: BP 193/123
[2018-02-06] MEDS ORDERED: FUROSEMIDE20 MG PO (20:15)
[2018-02-06] MEDS ORDERED: XANAX2 MG PO (20:15)
[2018-02-06] MEDS ORDERED: PROAIR HFA8.5 GM INH (20:17)
[2018-02-06 20:18] VITALS: BP 190/107
[2018-02-06 20:35] VITALS: BP 190/107; BMI 27.5
[2018-02-07 00:01] VITALS: BP 146/79
[2018-02-07 04:16] VITALS: BP 140/100
[2018-02-07 10:32] VITALS: BP 186/114
[2018-02-07 14:33] VITALS: BP 139/91
[2018-02-07 19:11] VITALS: BP 172/96
[2018-02-07 20:16] VITALS: BP 179/112
[2018-02-08] VITALS (7 sets, daily range): BP systolic 162–184; BP diastolic 91–118
[2018-02-08 07:26] LABS: BASOPHILS 0.1 % (0-2); EOSINOPHILS 3.2 % (0-7); HEMATOCRIT 34.9 % (36.0-48.0); HEMOGLOBIN 11.4 g/dL (12-16); IMMATURE GRANULOCYTES 0.1 % (0-5); LYMPHOCYTES 48.2 % (15-50); MCH 26.8 pg (26.0-34.0); MCHC 32.7 g/dL (31.0-37.0); MCV 81.9 fL (80.0-100.0); MEAN PLATELET VOLUME 10.3 fL (7.4-10.4); MONOCYTES 7.2 % (2-11); NEUTROPHILS 41.2 % (40-80); PLATELET COUNT 320 10x3/uL (130-400); RBC 4.26 10x6/uL (4.00-5.40); RDW 16.9 % (11.5-14.5); WBC 6.8 10x3/uL (4.8-10.8)
[2018-02-08 08:02] LABS: ALBUMIN 3.1 g/dL (3.4-5.0); ANION GAP 11.9 mmol/L (8-16); BILIRUBIN - TOTAL 0.65 mg/dL (0.2-1.3); CARBON DIOXIDE 28.4 mmol/L (21.0-32.0); CREATININE - SERUM 1.5 mg/dL (0.6-1.3); POTASSIUM - SERUM 4.3 mmol/L (3.5-5.1); PROTEIN - SERUM 6.2 g/dL (6.4-8.2)
[2018-02-09 07:08] LABS: ALBUMIN 2.8 g/dL (3.4-5.0); ANION GAP 14.5 mmol/L (8-16); BILIRUBIN - TOTAL 0.44 mg/dL (0.2-1.3); CALCIUM 8.1 mg/dL (8.5-10.1); CARBON DIOXIDE 23.9 mmol/L (21.0-32.0); CREATININE - SERUM 1.1 mg/dL (0.6-1.3); POTASSIUM - SERUM 4.4 mmol/L (3.5-5.1); PROTEIN - SERUM 6.1 g/dL (6.4-8.2)
[2018-02-09 07:11] LABS: BASOPHILS 0.2 % (0-2); EOSINOPHILS 3.2 % (0-7); HEMATOCRIT 35.1 % (36.0-48.0); HEMOGLOBIN 11.3 g/dL (12-16); IMMATURE GRANULOCYTES 0.2 % (0-5); LYMPHOCYTES 37.1 % (15-50); MCH 26.4 pg (26.0-34.0); MCHC 32.2 g/dL (31.0-37.0); MEAN PLATELET VOLUME 10.5 fL (7.4-10.4); NEUTROPHILS 52.3 % (40-80); PLATELET COUNT 304 10x3/uL (130-400); RBC 4.28 10x6/uL (4.00-5.40); RDW 17.2 % (11.5-14.5); WBC 5.3 10x3/uL (4.8-10.8)
[2018-02-09 08:43] VITALS: BP 173/122
[2018-02-09 11:45] VITALS: BP 170/110
[2018-02-09 13:04] VITALS: BP 121/86
[2018-02-09 16:34] VITALS: BP 110/72
[2018-02-09 21:16] VITALS: BP 134/64
[2018-02-10 06:31] LABS: BASOPHILS 0 % (0-2); EOSINOPHILS 0 % (0-7); HEMATOCRIT 33.2 % (36.0-48.0); HEMOGLOBIN 10.7 g/dL (12-16); IMMATURE GRANULOCYTES 0.1 % (0-5); LYMPHOCYTES 13.6 % (15-50); MCH 26.4 pg (26.0-34.0); MCHC 32.2 g/dL (31.0-37.0); MCV 81.8 fL (80.0-100.0); MEAN PLATELET VOLUME 10.4 fL (7.4-10.4); NEUTROPHILS 81.3 % (40-80); PLATELET COUNT 311 10x3/uL (130-400); RBC 4.06 10x6/uL (4.00-5.40); RDW 16.8 % (11.5-14.5)
[2018-02-10 06:35] LABS: WBC 7.6 10x3/uL (4.8-10.8)
[2018-02-10 07:06] LABS: ALBUMIN 2.7 g/dL (3.4-5.0); BILIRUBIN - TOTAL 0.46 mg/dL (0.2-1.3); CALCIUM 7.8 mg/dL (8.5-10.1); CARBON DIOXIDE 25.5 mmol/L (21.0-32.0)
[2018-02-10 07:10] LABS: ANION GAP 10.8 mmol/L (8-16); CREATININE - SERUM 1.4 mg/dL (0.6-1.3); POTASSIUM - SERUM 5.3 mmol/L (3.5-5.1)
[2018-02-10] MEDS ORDERED: OXYCODONE HCL5 MG PO (08:02)
[2018-02-10] MEDS ORDERED: ZESTRIL40 MG PO (10:35)
[2018-02-10] MEDS ORDERED: NORVASC10 MG PO (10:35)
[2018-02-10] MEDS ORDERED: CATAPRES0.1 MG PO (10:35)
[2018-02-10 11:30] VITALS: BP 182/102
[2018-02-10 12:43] VITALS: Ht 167.6 cm; Wt 77.1 kg
== END 2018-02-10 14:18 | disposition home or self-care (01) | DRG 418 ==
LOC: D.ER 15:45 → D.EDHOLD 18:04 → D.MS 18:04
PROVIDERS: Family Medicine; Internal Medicine Nephrology; Surgery
PROC: 0FT44ZZ Resection of Gallbladder, Percutaneous Endoscopic Approach (ICD-10-PCS; principal; 2018-02-09 09:45)
DX: K82.8 Other specified diseases of gallbladder (principal); N17.9 Acute kidney failure, unspecified; F72 Severe intellectual disabilities; I50.22 Chronic systolic (congestive) heart failure; K81.1 Chronic cholecystitis; I16.0 Hypertensive urgency; I10 Essential (primary) hypertension; I25.10 Atherosclerotic heart disease of native coronary artery without angina pectoris; F41.9 Anxiety disorder, unspecified; I07.1 Rheumatic tricuspid insufficiency; Z95.5 Presence of coronary angioplasty implant and graft; K21.9 Gastro-esophageal reflux disease without esophagitis; I11.0 Hypertensive heart disease with heart failure; D50.9 Iron deficiency anemia, unspecified; J44.9 Chronic obstructive pulmonary disease, unspecified

== ENCOUNTER 2018-02-14 08:14 | Emergency (ER) | payer MEDICAID ==
[~2018-02-14] VITALS: Ht 167.6 cm; Wt 77.3 kg
[~2018-02-14 08:14] MED LIST changes: +CATAPRES0.1 MG PO; +FUROSEMIDE20 MG PO; +OXYCODONE HCL5 MG PO; +PROAIR HFA8.5 GM INH; +XANAX2 MG PO
[2018-02-14 08:21] VITALS: Ht 167.6 cm; Wt 77.3 kg
[2018-02-14 08:55] LABS: BASOPHILS 0.3 % (0-2); EOSINOPHILS 2.1 % (0-7); HEMATOCRIT 34.3 % (36.0-48.0); HEMOGLOBIN 11.3 g/dL (12-16); IMMATURE GRANULOCYTES 0.1 % (0-5); LYMPHOCYTES 33.5 % (15-50); MCH 26.1 pg (26.0-34.0); MCHC 32.9 g/dL (31.0-37.0); MCV 79.2 fL (80.0-100.0); MEAN PLATELET VOLUME 9.7 fL (7.4-10.4); MONOCYTES 7.9 % (2-11); NEUTROPHILS 56.1 % (40-80); PLATELET COUNT 335 10x3/uL (130-400); RBC 4.33 10x6/uL (4.00-5.40); RDW 16.4 % (11.5-14.5); WBC 7.1 10x3/uL (4.8-10.8)
[2018-02-14 09:19] LABS: ALBUMIN 2.7 g/dL (3.4-5.0); ANION GAP 8.5 mmol/L (8-16); BILIRUBIN - TOTAL 1.29 mg/dL (0.2-1.3); CALCIUM 8.2 mg/dL (8.5-10.1); CARBON DIOXIDE 31.7 mmol/L (21.0-32.0); CREATININE - SERUM 1.2 mg/dL (0.6-1.3); POTASSIUM - SERUM 4.2 mmol/L (3.5-5.1); PROTEIN - SERUM 6.5 g/dL (6.4-8.2)
[2018-02-14] MEDS ORDERED: FUROSEMIDE20 MG PO (12:30)
[2018-02-14] MEDS ORDERED: FERROUS SULFAT325 MG PO (12:47)
[2018-02-14] MEDS ORDERED: ULTRACET TABLET1 TAB PO (12:47)
[2018-02-14 13:34] VITALS: BP 167/104
== END 2018-02-14 13:35 | disposition home or self-care (01) ==
LOC: D.ER 08:14
PROVIDERS: Emergency Medicine
DX: R10.9 Unspecified abdominal pain (principal); D64.9 Anemia, unspecified; M79.672 Pain in left foot; L76.82 Other postprocedural complications of skin and subcutaneous tissue; I10 Essential (primary) hypertension; K21.9 Gastro-esophageal reflux disease without esophagitis